=== PATIENT | male | born 1970 | race Two or more races ===

== ENCOUNTER 2024-09-24 18:29 | Inpatient (IN) | payer MEDICAID, OTHER ==
[~2024-09-24] VITALS: Ht 157.5 cm; Wt 61.7 kg
[2024-09-24] MEDS: OXYCODONE W/ ACETAMINOPHEN 5/325MG TABLET PO ONE (20:25)
[2024-09-24] MEDS: IBUPROFEN 800 MG TAB PO ONE (20:25)
--- NOTE | 2024-09-24 21:49 | DVH ---
INDICATION: INJURY/SWELLING/PAIN COMPARISON: None TECHNIQUE: CT of the right was performed without contrast. Volume transverse images were obtained a nd reconstructed in multiple planes using bone and soft tissue algorithms. CONTRAST: None Radiation Dose Information: CT Dose: CTDI volume is 7.75 mGy. Dose-length product is 242.92 mGy*cm FINDINGS: The alignment is normal. Arthritic changes of the patellofemoral joint and and there are cystic changes in the proximal tibia. There appears to be fragmentation superior pole of the patella. There is swelling over the anterior portion of the patella. Can not exclude acute fracture. IMPRESSION: Soft tissue swelling over the patella. Fragmentation of the patella age indeterminate. Arthritic changes of the left knee.
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
[2024-09-24 22:38] LABS: Basophils # (auto) 0.1 10 ^3/uL (0-0.2); Basophils % (auto) 0.6 % (0.0-2.0); Eosinophils # (auto) 0 10 ^3/uL (0-0.8); Eosinophils % (auto) 0.2 % (0.0-7.0); Hematocrit 39.5 % (41.0-53.0); Hemoglobin 13.3 g/dL (13.5-17.5); Lymphocytes # (auto) 1.7 10 ^3/uL (0.4-5.4); Mean Corpuscular Hemoglobin 29.9 pg (28.0-32.0); Mean Corpuscular Hgb Conc. 33.7 g/dL (32.0-36.0); Mean Corpuscular Volume 88.6 fL (80.0-100.0); Monocytes # (auto) 1.5 10 ^3/uL (0-1.3); Monocytes % (auto) 12.8 % (0.0-12.0); Neutrophils # (auto) 8.2 10 ^3/uL (1.6-8.6); Neutrophils % (auto) 71.4 % (37.0-80.0); Platelet Count (auto) 284 10^3/uL (140-450); Red Blood Cells 4.46 10^6/uL (4.5-5.90); Red Cell Distribution Width 13.3 % (11.8-14.3); White Blood Cell 11.4 10^3/uL (4.4-10.8)
--- NOTE | 2024-09-24 22:41 | DVH ---
HISTORY: TRAUMA/PAIN/SWELLING TECHNIQUE: Nonenhanced axial images through the facial bones with coronal and sagittal MPR. Radiation Dose Information: CT Dose: CTDI volume is 66.43 mGy. Dose-length product is 1387.34 mGy*cm FINDINGS: Mandible: No fracture Maxilla: No fracture Pterygoid plates: No fracture Zygomatic processes: No fracture. Zygomatic arches: No fracture Orbits: Intact Sinuses: Normal Facial swelling: No significant swelling visualized IMPRESSION: 1. No acute facial fractures. Radiation optimization: All CT scans at this facility use at least one of these dose optimization maryam hniques: automated exposure control mA and/or kV adjustment per patient size (includes targeted exam s where dose is matched to clinical indication) or iterative reconstruction.
[2024-09-24 22:55] LABS: Alanine Aminotransferase 16 U/L (7-40); Alkaline Phosphatase 91 U/L (46-116); Anion Gap 7 (5-15); Aspartate Aminotransferase 23 U/L (13-40); BUN/Creatinine Ratio 9.9 (10.0-20.0); Blood Urea Nitrogen 9 mg/dL (9-23); Calcium 9.9 mg/dL (8.7-10.4); Carbon Dioxide 27 mmol/L (20-31); Chloride 103 mmol/L (98-107); Sodium 137 mmol/L (136-145); Total Protein 6.9 g/dL (5.7-8.2)
[2024-09-24 22:57] LABS: Bilirubin, Total 1.3 mg/dL (0.2-1.0); Glucose 112 mg/dL (74-106)
[2024-09-24] MEDS: SODIUM CHLORIDE 0.9% 1,000 ML IV ONE (23:04)
[2024-09-25] VITALS (8 sets, daily range): BP systolic 90–103; BP diastolic 52–58; PULSE 64–95; RESP 16–18; TEMP 98.1–98.6; O2SAT 92–97
[2024-09-25] MEDS ORDERED: MORPHINE SULFATE INJ 2 MG/ml SYRG IV PRN (00:30)
[2024-09-25] MEDS ORDERED: ACETAMINOPHEN 325 MG TAB PO PRN (00:30)
[2024-09-25] MEDS ORDERED: ONDANSETRON HCL 4 MG/2 ML VIAL IV PRN (00:30)
[2024-09-25] MEDS ORDERED: NITROGLYCERIN 0.4 MG SL TAB SL PRN (00:30)
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
[2024-09-25] MEDS: SODIUM CHLORIDE 0.9% 1,000 ML IV SCH (02:33)
[2024-09-25] MEDS: cefTRIAXone 1GM/50ML D5W 50 ML IV ONE (02:33)
[2024-09-25 05:56] LABS: Basophils # (auto) 0.1 10 ^3/uL (0-0.2); Basophils % (auto) 0.6 % (0.0-2.0); Eosinophils # (auto) 0.2 10 ^3/uL (0-0.8); Eosinophils % (auto) 2.1 % (0.0-7.0); Hematocrit 35.9 % (41.0-53.0); Hemoglobin 12.2 g/dL (13.5-17.5); Lymphocytes # (auto) 2.1 10 ^3/uL (0.4-5.4); Lymphocytes % (auto) 22.6 % (10.0-50.0); Mean Corpuscular Hgb Conc. 33.9 g/dL (32.0-36.0); Mean Corpuscular Volume 88.4 fL (80.0-100.0); Monocytes # (auto) 1.6 10 ^3/uL (0-1.3); Monocytes % (auto) 17.5 % (0.0-12.0); Neutrophils # (auto) 5.4 10 ^3/uL (1.6-8.6); Neutrophils % (auto) 57.2 % (37.0-80.0); Platelet Count (auto) 262 10^3/uL (140-450); Red Blood Cells 4.05 10^6/uL (4.5-5.90); Red Cell Distribution Width 13.4 % (11.8-14.3); White Blood Cell 9.3 10^3/uL (4.4-10.8)
[2024-09-25 06:36] LABS: Alanine Aminotransferase 12 U/L (7-40); Albumin 3.5 g/dL (3.2-4.8); Alkaline Phosphatase 76 U/L (46-116); Anion Gap 8 (5-15); Aspartate Aminotransferase 16 U/L (13-40); BUN/Creatinine Ratio 13.1 (10.0-20.0); Blood Urea Nitrogen 13 mg/dL (9-23); Calcium 9.1 mg/dL (8.7-10.4); Carbon Dioxide 27 mmol/L (20-31); Chloride 105 mmol/L (98-107); Glucose 94 mg/dL (74-106); Sodium 140 mmol/L (136-145)
[2024-09-25 06:37] LABS: Bilirubin, Total 0.9 mg/dL (0.2-1.0); Potassium 3.5 mmol/L (3.5-5.1); Total Protein 5.8 g/dL (5.7-8.2)
[2024-09-25] MEDS: ENOXAPARIN SOD 40 MG/0.4 ML SYRINGE SC SCH (09:31)
--- NOTE | 2024-09-25 14:45 | DVHPN2 ---
Subjective 54-year-old male fell and injured his left knee Changes from previous H/P or p: Changes Eyes: No Pain, No Vision change, No Conjunctivae inflammation, No Eyelid inflammation, No Other, No Redness ENT: No Ear pain, No Ear discharge, No Nose pain, No Nose discharge, No Nose congestion, No Mouth pain, No Mouth swelling, No Throat pain, No Throat swelling, No Other Cardiovascular: No Chest Pain, No Palpitations, No Orthopnea, No Paroxysmal Noc. Dyspnea, No Edema, No Lt Headedness, No Other Respiratory: No Cough, No Dry, No Shortness of breath, No SOB with excertion, No Wheezing, No Hemoptysis, No Pleuritic Pain, No Sputum, No Other Gastrointestinal: No Nausea, No Vomiting, No Abdominal Pain, No Diarrhea, No Constipation, No Melena, No Hematochezia, No Other Genitourinary: No Dysuria, No Frequency, No Incontinence, No Hematuria, No Retention, No Other Musculoskeletal: other (Left knee pain, joint swelling.); No neck pain, No shoulder pain, No arm pain, No back pain, No hand pain, No leg pain, No foot pain Skin: No Rash, No Lesions, No Jaundice, No Bruising, No Other Objective Vitals Vital Signs Date Time Temp Pulse Resp B/P (MAP) Pulse Ox O2 Delivery O2 Flow Rate FiO2 09/25/24 12:46 64 17 103/52 (69) 95 09/25/24 08:32 98.6 98.6 09/24/24 20:47 Room Air General Appearance: Alert, Oriented X3, Cooperative Lungs: Clear to auscultation, Normal air movement Cardiovascular: Regular rate, Normal S1, Normal S2 Abdomen: Normal bowel sounds, Soft, No tenderness Extremities: Other (2+ edema in the left leg, no edema in the right leg) Medications Current Medications Medications Dose Ordered Sig/León Route Start Time Stop Time Status Last Admin Dose Admin Ceftriaxone Sodium 50 ml @ 100 mls/hr DAILY@0100 IV 09/26/24 01:00 Sodium Chloride 1,000 ml @ 60 mls/hr [id number] IV 09/25/24 00:30 09/25/24 02:33 60 MLS/HR Acetaminophen/ Hydrocodone Bitart 1 tab Q4HP PRN PO 09/25/24 00:30 Ondansetron HCl 4 mg Q4HP PRN IV 09/25/24 00:30 Docusate Sodium 100 mg BIDPRN PRN PO 09/25/24 00:30 Enoxaparin Sodium 40 mg DAILY SC 09/25/24 10:00 Acetaminophen 650 mg Q6HP PRN PO 09/25/24 00:30 Morphine Sulfate 2 mg Q4HPRN PRN IV 09/25/24 00:30 Nitroglycerin 0.4 mg Q5MINP PRN SL 09/25/24 00:30 Morphine Sulfate 2 mg Q30M PRN IV 09/25/24 00:30 Laboratory Results Laboratory Tests 09/25/24 04:50 Chemistry Test 09/24/24 22:28 09/25/24 04:50 Albumin 4.0 g/dL (3.2-4.8) 3.5 g/dL (3.2-4.8) Calcium Level 9.9 mg/dL (8.7-10.4) 9.1 mg/dL (8.7-10.4) Total Protein 6.9 g/dL (5.7-8.2) 5.8 g/dL (5.7-8.2) LFT Test 09/24/24 22:28 09/25/24 04:50 Alanine Aminotransferase (ALT) 16 U/L (7-40) 12 U/L (7-40) Alkaline Phosphatase 91 U/L (46-116) 76 U/L (46-116) Aspartate Amino Transferase (AST) 23 U/L (13-40) 16 U/L (13-40) Total Bilirubin 1.3 mg/dL (0.2-1.0) H 0.9 mg/dL (0.2-1.0) Assessment/Plan Assessment/Plan 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
--- NOTE | 2024-09-25 16:39 | DVH ---
Left lower extremity venous duplex Clinical History: edema Comparison: None Technique: Duplex Doppler evaluation of the deep venous system of the left lower extremity from the common femor al vein to the popliteal vein including color Doppler and spectral/pulsed waveform analysis was perfo rmed. Findings: The common femoral vein demonstrates appropriate compressibility and waveform variability. There is compressibility/patency of the great saphenous vein at the proximal thigh. The femoral vein demonstrates appropriate compressibility and waveform variability. The deep femoral vein demonstrates appropriate compressibility and waveform variability. The popliteal vein demonstrates appropriate compressibility and waveform variability. There is normal compressibility at the tibioperoneal trunk. Impression: No left femoropopliteal venous thrombosis.
[2024-09-25] MEDS: HYDROcodone-ACET 5/325MG TAB PO PRN (18:36)
[2024-09-26] VITALS (8 sets, daily range): BP systolic 94–115; BP diastolic 50–76; PULSE 61–75; RESP 18–21; TEMP 97.5–98.2; O2SAT 94–98
[2024-09-26] MEDS: cefTRIAXone 1GM/50ML D5W 50 ML IV SCH (01:53)
[2024-09-26 06:45] LABS: Basophils # (auto) 0.1 10 ^3/uL (0-0.2); Basophils % (auto) 0.7 % (0.0-2.0); Eosinophils # (auto) 0.2 10 ^3/uL (0-0.8); Eosinophils % (auto) 2.5 % (0.0-7.0); Hematocrit 36.8 % (41.0-53.0); Hemoglobin 12.3 g/dL (13.5-17.5); Lymphocytes # (auto) 1.8 10 ^3/uL (0.4-5.4); Lymphocytes % (auto) 21.1 % (10.0-50.0); Mean Corpuscular Hemoglobin 29.8 pg (28.0-32.0); Mean Corpuscular Hgb Conc. 33.4 g/dL (32.0-36.0); Mean Corpuscular Volume 89.4 fL (80.0-100.0); Neutrophils # (auto) 5.6 10 ^3/uL (1.6-8.6); Neutrophils % (auto) 64.7 % (37.0-80.0); Nucleated Red Blood Cells % 0.1 %; Platelet Count (auto) 295 10^3/uL (140-450); Red Blood Cells 4.11 10^6/uL (4.5-5.90); Red Cell Distribution Width 13.3 % (11.8-14.3); White Blood Cell 8.7 10^3/uL (4.4-10.8)
[2024-09-26 06:59] LABS: Alanine Aminotransferase 14 U/L (7-40); Albumin 3.6 g/dL (3.2-4.8); Alkaline Phosphatase 73 U/L (46-116); Anion Gap 5 (5-15); Aspartate Aminotransferase 17 U/L (13-40); BUN/Creatinine Ratio 14.6 (10.0-20.0); Blood Urea Nitrogen 12 mg/dL (9-23); Calcium 9.5 mg/dL (8.7-10.4); Carbon Dioxide 28 mmol/L (20-31); Chloride 105 mmol/L (98-107); Glucose 91 mg/dL (74-106); Potassium 4.1 mmol/L (3.5-5.1); Sodium 138 mmol/L (136-145)
[2024-09-26 07:00] LABS: Bilirubin, Total 0.6 mg/dL (0.2-1.0); Total Protein 6.1 g/dL (5.7-8.2)
--- NOTE | 2024-09-26 13:11 | DVHPN2 ---
Subjective Swelling in his left leg is better No DVT Changes from previous H/P or p: Changes Eyes: No Pain, No Vision change, No Conjunctivae inflammation, No Eyelid inflammation, No Other, No Redness ENT: No Ear pain, No Ear discharge, No Nose pain, No Nose discharge, No Nose congestion, No Mouth pain, No Mouth swelling, No Throat pain, No Throat swelling, No Other Cardiovascular: No Chest Pain, No Palpitations, No Orthopnea, No Paroxysmal Noc. Dyspnea, No Edema, No Lt Headedness, No Other Respiratory: No Cough, No Dry, No Shortness of breath, No SOB with excertion, No Wheezing, No Hemoptysis, No Pleuritic Pain, No Sputum, No Other Gastrointestinal: No Nausea, No Vomiting, No Abdominal Pain, No Diarrhea, No Constipation, No Melena, No Hematochezia, No Other Genitourinary: No Dysuria, No Frequency, No Incontinence, No Hematuria, No Retention, No Other Musculoskeletal: other (Left knee pain, joint swelling.); No neck pain, No shoulder pain, No arm pain, No back pain, No hand pain, No leg pain, No foot pain Skin: No Rash, No Lesions, No Jaundice, No Bruising, No Other Objective Vitals Vital Signs Date Time Temp Pulse Resp B/P (MAP) Pulse Ox O2 Delivery O2 Flow Rate FiO2 09/26/24 09:00 97.9 61 18 97/50 (66) 96 97.9 09/26/24 08:10 Room Air* 0 21 Intake/Output Intake and Output 09/26/24 07:00 Intake Total 890 ml Output Total 700 ml Balance 190 ml Intake Oral 840 ml IV Total 50 ml Output Urine Total 700 ml General Appearance: Alert, Oriented X3, Cooperative Lungs: Clear to auscultation, Normal air movement Cardiovascular: Regular rate, Normal S1, Normal S2 Abdomen: Normal bowel sounds, Soft, No tenderness Extremities: Other (2+ edema in the left leg, no edema in the right leg) Medications Current Medications Medications Dose Ordered Sig/León Route Start Time Stop Time Status Last Admin Dose Admin Ceftriaxone Sodium 50 ml @ 100 mls/hr DAILY@0100 IV 09/26/24 01:00 09/26/24 01:53 100 MLS/HR Acetaminophen/ Hydrocodone Bitart 1 tab Q4HP PRN PO 09/25/24 00:30 09/26/24 12:18 1 TAB Ondansetron HCl 4 mg Q4HP PRN IV 09/25/24 00:30 Docusate Sodium 100 mg BIDPRN PRN PO 09/25/24 00:30 Enoxaparin Sodium 40 mg DAILY SC 09/25/24 10:00 Acetaminophen 650 mg Q6HP PRN PO 09/25/24 00:30 Morphine Sulfate 2 mg Q4HPRN PRN IV 09/25/24 00:30 Nitroglycerin 0.4 mg Q5MINP PRN SL 09/25/24 00:30 Morphine Sulfate 2 mg Q30M PRN IV 09/25/24 00:30 Laboratory Results Laboratory Tests 09/26/24 05:54 Chemistry Test 09/26/24 05:54 Albumin 3.6 g/dL (3.2-4.8) Calcium Level 9.5 mg/dL (8.7-10.4) Total Protein 6.1 g/dL (5.7-8.2) LFT Test 09/26/24 05:54 Alanine Aminotransferase (ALT) 14 U/L (7-40) Alkaline Phosphatase 73 U/L (46-116) Aspartate Amino Transferase (AST) 17 U/L (13-40) Total Bilirubin 0.6 mg/dL (0.2-1.0) Assessment/Plan Assessment/Plan 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 Left lower extremity edema, rule out DVT Homeless Facial injury with no fracture Plan 09/25/2024: Doppler of the left leg to rule out DVT Orthopedic consult Pain management Monitor closely Advance directives discussed for 15 minutes Full code 09/26/2024: Orthopedic consult is pending Pain management as needed May shower No DVT Plan discussed with: Patient My Orders Orders - SRIRAM AGUIRRE MD Procedure Category Date Status Time Lt Lower Dvt US 09/25/24 Resulted 14:41 Date of Service: Sep 26, 2024 Billing Provider: SRIRAM AGUIRRE MD Common Visit Codes: [id number] INP/OBS CARE(HIGH) SRIRAM AGUIRRE MD Sep 26, 2024 13:11
--- NOTE | 2024-09-26 15:23 | MEDREC ---
[facility] Intervention Section I [facility] Intervention: Review courses of therapy (PLEASE CONSIDER D/C ANTIBIOTIC IN ABSENCE OF BACTERIAL INFECTION) NOE MARTIN PHARMACIST Sep 26, 2024 15:23
[2024-09-27] VITALS (7 sets, daily range): BP systolic 94–114; BP diastolic 61–81; PULSE 58–72; RESP 16–19; TEMP 97.6–98.4; O2SAT 93–100
--- NOTE | 2024-09-27 12:05 | DVHPN2 ---
Subjective Swelling in his left leg is better No DVT Changes from previous H/P or p: Changes Eyes: No Pain, No Vision change, No Conjunctivae inflammation, No Eyelid inflammation, No Other, No Redness ENT: No Ear pain, No Ear discharge, No Nose pain, No Nose discharge, No Nose congestion, No Mouth pain, No Mouth swelling, No Throat pain, No Throat swelling, No Other Cardiovascular: No Chest Pain, No Palpitations, No Orthopnea, No Paroxysmal Noc. Dyspnea, No Edema, No Lt Headedness, No Other Respiratory: No Cough, No Dry, No Shortness of breath, No SOB with excertion, No Wheezing, No Hemoptysis, No Pleuritic Pain, No Sputum, No Other Gastrointestinal: No Nausea, No Vomiting, No Abdominal Pain, No Diarrhea, No Constipation, No Melena, No Hematochezia, No Other Genitourinary: No Dysuria, No Frequency, No Incontinence, No Hematuria, No Retention, No Other Musculoskeletal: other (Left knee pain, joint swelling.); No neck pain, No shoulder pain, No arm pain, No back pain, No hand pain, No leg pain, No foot pain Skin: No Rash, No Lesions, No Jaundice, No Bruising, No Other Objective Vitals Vital Signs Date Time Temp Pulse Resp B/P (MAP) Pulse Ox O2 Delivery O2 Flow Rate FiO2 09/27/24 09:00 97.8 60 16 111/72 (85) 97 97.8 09/27/24 08:00 Room Air* 0 21 Intake/Output Intake and Output 09/27/24 07:00 Intake Total 1530 ml Output Total 1850 ml Balance -320 ml Intake Oral 1480 ml IV Total 50 ml Output Urine Total 1850 ml General Appearance: Alert, Oriented X3, Cooperative Lungs: Clear to auscultation, Normal air movement Cardiovascular: Regular rate, Normal S1, Normal S2 Abdomen: Normal bowel sounds, Soft, No tenderness Extremities: Other (2+ edema in the left leg, no edema in the right leg) Medications Current Medications Medications Dose Ordered Sig/León Route Start Time Stop Time Status Last Admin Dose Admin Acetaminophen/ Hydrocodone Bitart 1 tab Q4HP PRN PO 09/25/24 00:30 09/26/24 20:25 1 TAB Ondansetron HCl 4 mg Q4HP PRN IV 09/25/24 00:30 Docusate Sodium 100 mg BIDPRN PRN PO 09/25/24 00:30 Enoxaparin Sodium 40 mg DAILY SC 09/25/24 10:00 Acetaminophen 650 mg Q6HP PRN PO 09/25/24 00:30 Morphine Sulfate 2 mg Q4HPRN PRN IV 09/25/24 00:30 Nitroglycerin 0.4 mg Q5MINP PRN SL 09/25/24 00:30 Morphine Sulfate 2 mg Q30M PRN IV 09/25/24 00:30 Laboratory Results Laboratory Tests 09/26/24 05:54 Assessment/Plan Assessment/Plan 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 Left lower extremity edema, rule out DVT Homeless Facial injury with no fracture Plan 09/25/2024: Doppler of the left leg to rule out DVT Orthopedic consult Pain management Monitor closely Advance directives discussed for 15 minutes Full code 09/26/2024: Orthopedic consult is pending Pain management as needed May shower No DVT 09/27/2024: Continue the current management pending orthopedic surgery evaluation Pain management as needed Shower Plan discussed with: Patient Date of Service: Sep 27, 2024 Billing Provider: SRIRAM AGUIRRE MD Common Visit Codes: [id number] INP/OBS CARE(MOD) SRIRAM AGUIRRE MD Sep 27, 2024 12:05
--- NOTE | 2024-09-27 13:01 | DVH ---
Procedure: MRI LEFT KNEE WO CONTRAST 09/27/2024 11:34 AM INDICATION: patella tendon tear COMPARISON: CT CT L KNEE WO CONTRAST on DOS: 09/24/24 TECHNIQUE: MRI of the left knee was performed utilizing multiple appropriate imaging planes and pulse sequences. FINDINGS: Medial meniscus: There is complete tear of the posterior root, deformity and signal alteration of the posterior horn. The body of the meniscus is markedly diminutive that could be related to prior meni scectomy or tear. Lateral meniscus: Complete tear of the posterior root. Anterior cruciate ligament: The ACL is absent likely chronically torn. Posterior cruciate ligament: Signal alteration suggestive of mucoid degeneration or partial tear. Medial collateral ligament: Unremarkable. Lateral stabilizers: Unremarkable. Extensor mechanism: Patellar tendon tear from inferior pole patella is seen with 2.6 cm tendon retrac tion and resultant patella Anitha. The quadriceps tendon is intact. Pes anserine Tendons: Unremarkable. Medial compartment: Full-thickness loss of articular cartilage is seen on both sides of the joint wit h underlying subchondral cyst formation associated marginal osteophytosis. Lateral compartment: Moderate thinning and irregularity of the articular cartilage on both sides join t. Moderate marginal osteophytosis noted. Subchondral edema and cyst formation noted. Patellofemoral compartment: Mild irregularity of the articular cartilage over lateral patellar facet noted. The lateral patellofemoral retinaculum is completely torn at midportion and posterior retracte d. The anterior part is markedly thickened and edematous. Patellar osteophytosis. Bones: 2 adjacent corticated osseous fragments noted at the superolateral aspect of patella each juan pablo uring 1 cm with underlying bone marrow edema. No bone marrow edema is seen in the adjacent patella. These may represent old avulsion fracture fragments versus multi partite patella. Joint Effusion: Large complex suprapatellar joint effusion likely hemorrhagic. Popliteal fossa: No Guillory's cyst. Other: Severe diffuse subcutaneous edema. Large amount of subcutaneous fluid anterior to patella sug gestive of closed degloving injury. IMPRESSION: 1. Complete tear and retraction of patellar tendon from patellar insertion with resultant patella Alt a. 2. No acute osseous abnormality. 3. Closed degloving injury in the anterior knee with a large amount of subcutaneous hemorrhagic fluid noted. 4. Diffuse subcutaneous edema overlying the knee. 5. Complete tear of the lateral patellar patellofemoral ligament at midportion . 6. Findings suggestive of multipartite patella versus old comminuted fracture of the superolateral pa tellar pole. Moderate bone marrow edema in the osseous fragments reflect instability. 7. Large complex suprapatellar joint effusion likely hemorrhagic. 8. Medial and lateral meniscal tears. 9. 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 10. Absent ACL reflecting a chronic tear. 11. Signal alteration of PCL likely reflect mucoid degeneration. Chronic partial tear can not be rul ed out.
--- NOTE | 2024-09-27 18:14 | DVH ---
CHEST RADIOGRAPH Indication: surgery Technique: Single frontal view of the chest was obtained COMPARISON: None FINDINGS: Lines and Tubes: None Lungs: Clear Pleura: No effusion. No pneumothorax. Cardiomediastinal contours: Unremarkable Bones: Unremarkable IMPRESSION: No acute disease.
[2024-09-28] VITALS (9 sets, daily range): BP systolic 95–148; BP diastolic 64–89; PULSE 58–91; RESP 15–20; TEMP 97.5–99.3; O2SAT 94–100
[2024-09-28 00:24] LABS: Urine Bacteria None Seen /hpf (None Seen)
[2024-09-28 00:29] LABS: Urine Blood Negative /uL (Negative); Urine Clarity Clear (Clear); Urine Color Light-Yellow (Yellow); Urine Protein, UAD Negative (Negative); Urine Urobilinogen Normal (Negative); Urine WBC <1 /hpf (0 - 3); Urine pH 6.5 (5.0-9.0)
[2024-09-28 07:03] LABS: Basophils # (auto) 0 10 ^3/uL (0-0.2); Basophils % (auto) 0.5 % (0.0-2.0); Eosinophils # (auto) 0.2 10 ^3/uL (0-0.8); Eosinophils % (auto) 2.8 % (0.0-7.0); Hematocrit 43.6 % (41.0-53.0); Hemoglobin 14.9 g/dL (13.5-17.5); Lymphocytes # (auto) 1.6 10 ^3/uL (0.4-5.4); Mean Corpuscular Hemoglobin 30.3 pg (28.0-32.0); Mean Corpuscular Hgb Conc. 34.2 g/dL (32.0-36.0); Mean Corpuscular Volume 88.6 fL (80.0-100.0); Monocytes # (auto) 0.8 10 ^3/uL (0-1.3); Monocytes % (auto) 9.2 % (0.0-12.0); Neutrophils # (auto) 6.1 10 ^3/uL (1.6-8.6); Neutrophils % (auto) 69.5 % (37.0-80.0); Platelet Count (auto) 364 10^3/uL (140-450); Red Blood Cells 4.93 10^6/uL (4.5-5.90); Red Cell Distribution Width 13.2 % (11.8-14.3); White Blood Cell 8.8 10^3/uL (4.4-10.8)
[2024-09-28 07:17] LABS: INR 1.05 (0.9-1.15); Partial Thromboplastin Time 27.6 SEC (24.5-34.5); Prothrombin Time 11.1 sec (9.3-11.8)
[2024-09-28 07:22] LABS: Alanine Aminotransferase 16 U/L (7-40); Albumin 4.1 g/dL (3.2-4.8); Alkaline Phosphatase 86 U/L (46-116); Anion Gap 6 (5-15); Aspartate Aminotransferase 20 U/L (13-40); BUN/Creatinine Ratio 19.5 (10.0-20.0); Blood Urea Nitrogen 17 mg/dL (9-23); Calcium 9.8 mg/dL (8.7-10.4); Carbon Dioxide 30 mmol/L (20-31); Chloride 100 mmol/L (98-107); Glucose 90 mg/dL (74-106); Potassium 4.6 mmol/L (3.5-5.1)
[2024-09-28 07:23] LABS: Bilirubin, Total 0.7 mg/dL (0.2-1.0)
[2024-09-28 07:25] LABS: Sodium 136 mmol/L (136-145)
[2024-09-28] MEDS: ceFAZolin 2 GM/D5W100ml 100 ML IV ONE (12:43)
--- NOTE | 2024-09-28 13:43 | DVHPN2 ---
Subjective Surgery for today Changes from previous H/P or p: Changes Eyes: No Pain, No Vision change, No Conjunctivae inflammation, No Eyelid inflammation, No Other, No Redness ENT: No Ear pain, No Ear discharge, No Nose pain, No Nose discharge, No Nose congestion, No Mouth pain, No Mouth swelling, No Throat pain, No Throat swelling, No Other Cardiovascular: No Chest Pain, No Palpitations, No Orthopnea, No Paroxysmal Noc. Dyspnea, No Edema, No Lt Headedness, No Other Respiratory: No Cough, No Dry, No Shortness of breath, No SOB with excertion, No Wheezing, No Hemoptysis, No Pleuritic Pain, No Sputum, No Other Gastrointestinal: No Nausea, No Vomiting, No Abdominal Pain, No Diarrhea, No Constipation, No Melena, No Hematochezia, No Other Genitourinary: No Dysuria, No Frequency, No Incontinence, No Hematuria, No Retention, No Other Musculoskeletal: other (Left knee pain, joint swelling.); No neck pain, No shoulder pain, No arm pain, No back pain, No hand pain, No leg pain, No foot pain Skin: No Rash, No Lesions, No Jaundice, No Bruising, No Other Objective Vitals Vital Signs Date Time Temp Pulse Resp B/P (MAP) Pulse Ox O2 Delivery O2 Flow Rate FiO2 09/28/24 13:00 98.1 67 16 105/65 (78) 96 98.1 09/27/24 20:00 Room Air* 0 21 Intake/Output Intake and Output 09/28/24 07:00 Intake Total 900 ml Output Total 2325 ml Balance -1425 ml Intake Oral 900 ml Output Urine Total 2325 ml General Appearance: Alert, Oriented X3, Cooperative Lungs: Clear to auscultation, Normal air movement Cardiovascular: Regular rate, Normal S1, Normal S2 Abdomen: Normal bowel sounds, Soft, No tenderness Extremities: Other (2+ edema in the left leg, no edema in the right leg) Medications Current Medications Medications Dose Ordered Sig/León Route Start Time Stop Time Status Last Admin Dose Admin Acetaminophen/ Hydrocodone Bitart 1 tab Q4HP PRN PO 09/25/24 00:30 09/27/24 12:44 1 TAB Ondansetron HCl 4 mg Q4HP PRN IV 09/25/24 00:30 Docusate Sodium 100 mg BIDPRN PRN PO 09/25/24 00:30 Enoxaparin Sodium 40 mg DAILY SC 09/25/24 10:00 Acetaminophen 650 mg Q6HP PRN PO 09/25/24 00:30 Morphine Sulfate 2 mg Q4HPRN PRN IV 09/25/24 00:30 Nitroglycerin 0.4 mg Q5MINP PRN SL 09/25/24 00:30 Morphine Sulfate 2 mg Q30M PRN IV 09/25/24 00:30 Laboratory Results Laboratory Tests 09/28/24 06:20 Chemistry Test 09/28/24 06:20 Albumin 4.1 g/dL (3.2-4.8) Calcium Level 9.8 mg/dL (8.7-10.4) Total Protein 7.0 g/dL (5.7-8.2) Coagulation Test 09/28/24 06:20 Prothrombin Time 11.1 sec (9.3-11.8) Prothrombin Time INR 1.05 (0.9-1.15) Activated Partial Thromboplast Time 27.6 SEC (24.5-34.5) LFT Test 09/28/24 06:20 Alanine Aminotransferase (ALT) 16 U/L (7-40) Alkaline Phosphatase 86 U/L (46-116) Aspartate Amino Transferase (AST) 20 U/L (13-40) Total Bilirubin 0.7 mg/dL (0.2-1.0) Urinalysis Test 09/28/24 00:16 Urine Color Light-yellow (Yellow) Urine Clarity Clear (Clear) Urine pH 6.5 (5.0-9.0) Urine Specific [place] 1.010 (1.001-1.035) Urine Protein Negative (Negative) Urine Ketones Negative (Negative) Urine Blood Negative /uL (Negative) Urine Nitrite Negative (Negative) Urine Bilirubin Negative (Negative) Urine Urobilinogen Normal mg/dL (Negative) Urine Leukocyte Esterase Negative /uL (Negative) Urine RBC 2 /hpf (0 - 3) Urine WBC <1 /hpf (0 - 3) Urine Squamous Epithelial Cells None seen /hpf (<5) Urine Bacteria None seen /hpf (None Seen) Urine Glucose Normal mg/dL (Normal) Assessment/Plan Assessment/Plan 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 Left lower extremity edema, rule out DVT Homeless Facial injury with no fracture Plan 09/25/2024: Doppler of the left leg to rule out DVT Orthopedic consult Pain management Monitor closely Advance directives discussed for 15 minutes Full code 09/26/2024: Orthopedic consult is pending Pain management as needed May shower No DVT 09/27/2024: Continue the current management pending orthopedic surgery evaluation Pain management as needed Shower 09/28/2024: Surgery for today The rest of the management will depend on the hospital course Plan discussed with: Patient Date of Service: Sep 28, 2024 Billing Provider: SRIRAM AGUIRRE MD Common Visit Codes: [id number] INP/OBS CARE(HIGH) SRIRAM AGUIRRE MD Sep 28, 2024 13:43
[2024-09-28] MEDS ORDERED: LIDOCAINE 1% INJ PF 5ML AMP ONE (14:03)
[2024-09-28] MEDS ORDERED: ROCURONIUM 10MG/ML 10ML VIAL IV ONE (14:03)
[2024-09-28] MEDS ORDERED: MEPERIDINE HCL (50 MG/ML) 1 ML VIAL ONE (14:03)
[2024-09-28] MEDS ORDERED: PROPOFOL 10 MG/ML 20 ML IV ONE (14:03)
[2024-09-28] MEDS ORDERED: fentaNYL CITRATE 100 MCG/2 ML VL ONE (14:03)
[2024-09-28] MEDS ORDERED: MIDAZOLAM HCL 2MG/2ML 2ml VIAL (1mg/ml) ONE (14:03)
[2024-09-28] MEDS: BUPIVACAINE HCL 50 ML ONE (15:08)
[2024-09-28] MEDS ORDERED: KETOROLAC TROMETH 30 MG/ML 1ML VIAL ONE (15:29)
[2024-09-28] MEDS ORDERED: DexAMETHasone SOD PHOS 10MG/1ML VIAL INJ ONE (15:29)
[2024-09-28] MEDS ORDERED: KETAMINE 50mg/ML 10ml Vial 10 ML ONE (15:29)
[2024-09-28] MEDS: ROPIVACAINE 0.5% (5MG/ML) 20ML AMPULE IJ ONE (15:50)
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
[2024-09-28] MEDS ORDERED: hydrALAZINE HCL 20 MG/ML VL IV PRN (16:45)
[2024-09-28] MEDS ORDERED: MEPERIDINE HCL (25 MG/ML) 1ML VIAL IV PRN (16:45)
[2024-09-28] MEDS ORDERED: ACETAMINOPHEN IV 1000 MG/100ML (10MG/ML) IV PRN (16:45)
[2024-09-28] MEDS: HYDROmorphone HCL 2 MG/ML VL/or syr IV PRN (17:28)
[2024-09-28] MEDS: ceFAZolin 1GM/50ML 50 ML IV SCH (18:30)
--- NOTE | 2024-09-28 18:31 | DVH ---
C-ARM FLUOROSCOPY: PROCEDURE: Left patella tendon repair FLUOROSCOPY TIME: 12.3 seconds DAP: 0.24 mgy FINDINGS: Spot intraoperative C arm radiographs demonstrating left patella tendon repair. IMPRESSION: Please refer to surgical report for detailed findings.
[2024-09-28] MEDS: LACTATED RINGER'S 1,000 ML IV SCH (19:40)
[2024-09-28] MEDS: DOCUSATE SOD 100 MG CAP PO PRN (22:46)
[2024-09-29] VITALS (7 sets, daily range): BP systolic 123–150; BP diastolic 73–85; PULSE 74–85; RESP 16–20; TEMP 98–99.1; O2SAT 94–100
[2024-09-29] MEDS: MORPHINE SULFATE INJ 2 MG/ml SYRG IV PRN (06:30)
[2024-09-29] MEDS: ONDANSETRON HCL 4 MG/2 ML VIAL IV ONE (07:28)
--- NOTE | 2024-09-29 09:11 | DVHINCON2 ---
Date of service: Sep 28, 2024 Allergies: Coded Allergies: NO KNOWN ALLERGIES (Unverified , 09/24/24) Current Medications Current Medications Medications (Trade) Dose Ordered Sig/León Route PRN Reason Start Time Stop Time Status Last Admin Lactated Ringer's 1,000 ml @ 100 mls/hr Q10H IV 09/28/24 16:30 09/28/24 19:40 Cefazolin Sodium 50 ml @ 50 mls/hr Q6H IV 09/28/24 16:30 09/29/24 05:29 DC 09/29/24 05:25 Acetaminophen (Ofirmev) 1,000 mg [id number] PRN IV PAIN SCALE 1-3 OR TEMP>100.4 09/28/24 16:45 09/28/24 16:49 DC Hydralazine HCl (Apresoline Injection) 5 mg Q10M PRN IV SBP>160 09/28/24 16:45 09/28/24 17:36 DC Hydromorphone HCl (Dilaudid Injection) 0.5 mg Q10M PRN IV SEVERE PAIN (7-10 PAIN SCALE) 09/28/24 16:45 09/28/24 17:26 DC Meperidine HCl (Demerol Injection) 25 mg Q10M PRN IV MODERATE PAIN (4-6 PAIN SCALE) 09/28/24 16:45 09/28/24 17:16 DC Vital Signs Vital Signs Date Time Temp Pulse Resp B/P (MAP) Pulse Ox O2 Delivery O2 Flow Rate FiO2 09/29/24 07:00 81 18 133/82 09/29/24 05:00 98.0 95 98.0 09/28/24 19:49 Room Air* 0 21 Physical Exam AAA x3 Significant swelling of the left knee noted. Patellar tendon defect palpated. NVI Labs/Diagnostic Data Labs Test 09/28/24 06:20 09/28/24 00:16 Range/Units White Blood Count 8.8 4.4-10.8 10^3/uL Red Blood Count 4.93 4.5-5.90 10^6/uL Hemoglobin 14.9 # 13.5-17.5 g/dL Hematocrit 43.6 # 41.0-53.0 % Mean Corpuscular Volume 88.6 80.0-100.0 fL Mean Corpuscular Hemoglobin 30.3 28.0-32.0 pg Mean Corpuscular Hemoglobin Concent 34.2 32.0-36.0 g/dL Red Cell Distribution Width 13.2 11.8-14.3 % Platelet Count 364 140-450 10^3/uL Mean Platelet Volume 8.6 6.9-10.8 fL Neutrophils (%) (Auto) 69.5 37.0-80.0 % Lymphocytes (%) (Auto) 18.0 10.0-50.0 % Monocytes (%) (Auto) 9.2 0.0-12.0 % Eosinophils (%) (Auto) 2.8 0.0-7.0 % Basophils (%) (Auto) 0.5 0.0-2.0 % Neutrophils # (Auto) 6.1 1.6-8.6 10 ^3/uL Lymphocytes # (Auto) 1.6 0.4-5.4 10 ^3/uL Monocytes # (Auto) 0.8 0-1.3 10 ^3/uL Eosinophils # (Auto) 0.2 0-0.8 10 ^3/uL Basophils # (Auto) 0 0-0.2 10 ^3/uL Nucleated Red Blood Cells 0.0 % Prothrombin Time 11.1 9.3-11.8 sec Prothrombin Time INR 1.05 0.9-1.15 Activated Partial Thromboplast Time 27.6 24.5-34.5 SEC Sodium Level 136 136-145 mmol/L Potassium Level 4.6 3.5-5.1 mmol/L Chloride Level 100 98-107 mmol/L Carbon Dioxide Level 30 20-31 mmol/L Anion Gap 6 5-15 Blood Urea Nitrogen 17 9-23 mg/dL Creatinine 0.87 0.700-1.30 mg/dL Glomerular Filtration Rate Calc 103 >90 mL/min BUN/Creatinine Ratio 19.5 10.0-20.0 Serum Glucose 90 74-106 mg/dL Calcium Level 9.8 8.7-10.4 mg/dL Total Bilirubin 0.7 0.2-1.0 mg/dL Aspartate Amino Transferase (AST) 20 13-40 U/L Alanine Aminotransferase (ALT) 16 7-40 U/L Alkaline Phosphatase 86 46-116 U/L Total Protein 7.0 5.7-8.2 g/dL Albumin 4.1 3.2-4.8 g/dL Urine Color Light-yellow Yellow Urine Clarity Clear Clear Urine pH 6.5 5.0-9.0 Urine Specific [place] 1.010 1.001-1.035 Urine Protein Negative Negative Urine Ketones Negative Negative Urine Blood Negative Negative /uL Urine Nitrite Negative Negative Urine Bilirubin Negative Negative Urine Urobilinogen Normal Negative mg/dL Urine Leukocyte Esterase Negative Negative /uL Urine RBC 2 0 - 3 /hpf Urine WBC <1 0 - 3 /hpf Urine Squamous Epithelial Cells None seen <5 /hpf Urine Bacteria None seen None Seen /hpf Urine Glucose Normal Normal mg/dL Plan/Recommendation 54Y male,with patellar tendon rupture. Complete tear noted on MRI Surgery recommended for primary repair. Pros and cons discussed. Benefits, risks and treatment alternatives discussed Importance of compliance with weight bearing restrictions discussed. Need for staying in the brace/splint was also discussed. Importance of good hygiene were also discussed consideration homeless and has multiple skin ulcerations Surgical complications including neurovascular injury, infection, arthrofibrosis, loss of limb or life were discussed. He decided to proceed with the surgical option. Plan discussed with: Patient JUAN A DIAZ MD Sep 29, 2024 09:11
--- NOTE | 2024-09-29 11:34 | DVHPN2 ---
Subjective Postop 1 day Complains of severe pain and says the morphine is not working Changes from previous H/P or p: Changes Eyes: No Pain, No Vision change, No Conjunctivae inflammation, No Eyelid inflammation, No Other, No Redness ENT: No Ear pain, No Ear discharge, No Nose pain, No Nose discharge, No Nose congestion, No Mouth pain, No Mouth swelling, No Throat pain, No Throat swelling, No Other Cardiovascular: No Chest Pain, No Palpitations, No Orthopnea, No Paroxysmal Noc. Dyspnea, No Edema, No Lt Headedness, No Other Respiratory: No Cough, No Dry, No Shortness of breath, No SOB with excertion, No Wheezing, No Hemoptysis, No Pleuritic Pain, No Sputum, No Other Gastrointestinal: No Nausea, No Vomiting, No Abdominal Pain, No Diarrhea, No Constipation, No Melena, No Hematochezia, No Other Genitourinary: No Dysuria, No Frequency, No Incontinence, No Hematuria, No Retention, No Other Musculoskeletal: other (Left knee pain, joint swelling.); No neck pain, No shoulder pain, No arm pain, No back pain, No hand pain, No leg pain, No foot pain Skin: No Rash, No Lesions, No Jaundice, No Bruising, No Other Objective Vitals Vital Signs Date Time Temp Pulse Resp B/P (MAP) Pulse Ox O2 Delivery O2 Flow Rate FiO2 09/29/24 09:00 98.1 77 20 136/81 (99) 99 98.1 09/28/24 19:49 Room Air* 0 21 Intake/Output Intake and Output 09/29/24 07:00 Intake Total 950 ml Output Total 2050 ml Balance -1100 ml Intake Oral 800 ml IV Total 150 ml Output Urine Total 2050 ml General Appearance: Alert, Oriented X3, Cooperative Lungs: Clear to auscultation, Normal air movement Cardiovascular: Regular rate, Normal S1, Normal S2 Abdomen: Normal bowel sounds, Soft, No tenderness Extremities: Other (2+ edema in the left leg, no edema in the right leg) Medications Current Medications Medications Dose Ordered Sig/León Route Start Time Stop Time Status Last Admin Dose Admin Acetaminophen/ Hydrocodone Bitart 1 tab Q4HP PRN PO 09/25/24 00:30 09/29/24 09:32 1 TAB Ondansetron HCl 4 mg Q4HP PRN IV 09/25/24 00:30 Docusate Sodium 100 mg BIDPRN PRN PO 09/25/24 00:30 09/28/24 22:46 100 MG Enoxaparin Sodium 40 mg DAILY SC 09/25/24 10:00 Acetaminophen 650 mg Q6HP PRN PO 09/25/24 00:30 Nitroglycerin 0.4 mg Q5MINP PRN SL 09/25/24 00:30 Lactated Ringer's 1,000 ml @ 100 mls/hr Q10H IV 09/28/24 16:30 09/28/24 19:40 100 MLS/HR Hydromorphone HCl 0.5 mg Q4HPRN PRN IV 09/29/24 10:00 Laboratory Results Laboratory Tests 09/28/24 06:20 Urinalysis Test 09/28/24 00:16 Urine Color Light-yellow (Yellow) Urine Clarity Clear (Clear) Urine pH 6.5 (5.0-9.0) Urine Specific [place] 1.010 (1.001-1.035) Urine Protein Negative (Negative) Urine Ketones Negative (Negative) Urine Blood Negative /uL (Negative) Urine Nitrite Negative (Negative) Urine Bilirubin Negative (Negative) Urine Urobilinogen Normal mg/dL (Negative) Urine Leukocyte Esterase Negative /uL (Negative) Urine RBC 2 /hpf (0 - 3) Urine WBC <1 /hpf (0 - 3) Urine Squamous Epithelial Cells None seen /hpf (<5) Urine Bacteria None seen /hpf (None Seen) Urine Glucose Normal mg/dL (Normal) Assessment/Plan Assessment/Plan 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 Left lower extremity edema, rule out DVT Homeless Facial injury with no fracture Plan 09/25/2024: Doppler of the left leg to rule out DVT Orthopedic consult Pain management Monitor closely Advance directives discussed for 15 minutes Full code 09/26/2024: Orthopedic consult is pending Pain management as needed May shower No DVT 09/27/2024: Continue the current management pending orthopedic surgery evaluation Pain management as needed Shower 09/28/2024: Surgery for today The rest of the management will depend on the hospital course 09/29/2024: Change morphine to Dilaudid Physical therapy evaluation Lovenox prophylaxis Monitor closely Plan discussed with: Patient My Orders Orders - SRIRAM AGUIRRE MD Procedure Category Date Status Time Basic Metabolic Panel LAB 09/29/24 Logged 04:00 Complete Blood Count LAB 09/29/24 Logged 04:00 Magnesium LAB 09/29/24 Logged 04:00 Cardiac DIET 09/29/24 Transmitted Diet-2gna,Lofat,Lochol Breakfast Hydromorphone PHA 09/29/24 In Process Injection (Dilaudid 10:00 Date of Service: Sep 29, 2024 Billing Provider: SRIRAM AGUIRRE MD Common Visit Codes: [id number] INP/OBS CARE(HIGH) SRIRAM AGUIRRE MD Sep 29, 2024 11:34
[2024-09-29] MEDS: HYDROmorphone HCL 2 MG/ML VL/or syr IV PRN (12:26)
[2024-09-29 20:38] LABS: Basophils # (auto) 0.1 10 ^3/uL (0-0.2); Basophils % (auto) 0.8 % (0.0-2.0); Eosinophils # (auto) 0.1 10 ^3/uL (0-0.8); Eosinophils % (auto) 0.8 % (0.0-7.0); Hematocrit 41.5 % (41.0-53.0); Hemoglobin 13.9 g/dL (13.5-17.5); Lymphocytes # (auto) 2.1 10 ^3/uL (0.4-5.4); Lymphocytes % (auto) 15.5 % (10.0-50.0); Mean Corpuscular Hemoglobin 29.4 pg (28.0-32.0); Mean Corpuscular Hgb Conc. 33.5 g/dL (32.0-36.0); Mean Corpuscular Volume 87.8 fL (80.0-100.0); Monocytes # (auto) 1.4 10 ^3/uL (0-1.3); Monocytes % (auto) 10.2 % (0.0-12.0); Neutrophils % (auto) 72.7 % (37.0-80.0); Platelet Count (auto) 391 10^3/uL (140-450); Red Blood Cells 4.72 10^6/uL (4.5-5.90); Red Cell Distribution Width 13.1 % (11.8-14.3); White Blood Cell 13.8 10^3/uL (4.4-10.8)
[2024-09-29 20:43] LABS: Potassium 4.2 mmol/L (3.5-5.1)
[2024-09-29 20:44] LABS: Anion Gap 5 (5-15); Calcium 10.1 mg/dL (8.7-10.4); Carbon Dioxide 31 mmol/L (20-31)
[2024-09-29 20:49] LABS: BUN/Creatinine Ratio 23.4 (10.0-20.0); Blood Urea Nitrogen 18 mg/dL (9-23)
[2024-09-29 20:50] LABS: Magnesium 1.9 mg/dL (1.6-2.6)
[2024-09-29 20:51] LABS: Chloride 98 mmol/L (98-107); Glucose 125 mg/dL (74-106); Sodium 134 mmol/L (136-145)
[2024-09-30] VITALS (7 sets, daily range): BP systolic 108–128; BP diastolic 74–88; PULSE 71–84; RESP 16–18; TEMP 97.9–98.6; O2SAT 94–100
--- NOTE | 2024-09-30 11:24 | DVHPN2 ---
Subjective Postop 2 day Vital signs are stable Complains of pain Changes from previous H/P or p: Changes Eyes: No Pain, No Vision change, No Conjunctivae inflammation, No Eyelid inflammation, No Other, No Redness ENT: No Ear pain, No Ear discharge, No Nose pain, No Nose discharge, No Nose congestion, No Mouth pain, No Mouth swelling, No Throat pain, No Throat swelling, No Other Cardiovascular: No Chest Pain, No Palpitations, No Orthopnea, No Paroxysmal Noc. Dyspnea, No Edema, No Lt Headedness, No Other Respiratory: No Cough, No Dry, No Shortness of breath, No SOB with excertion, No Wheezing, No Hemoptysis, No Pleuritic Pain, No Sputum, No Other Gastrointestinal: No Nausea, No Vomiting, No Abdominal Pain, No Diarrhea, No Constipation, No Melena, No Hematochezia, No Other Genitourinary: No Dysuria, No Frequency, No Incontinence, No Hematuria, No Retention, No Other Musculoskeletal: other (Left knee pain, joint swelling.); No neck pain, No shoulder pain, No arm pain, No back pain, No hand pain, No leg pain, No foot pain Skin: No Rash, No Lesions, No Jaundice, No Bruising, No Other Objective Vitals Vital Signs Date Time Temp Pulse Resp B/P (MAP) Pulse Ox O2 Delivery O2 Flow Rate FiO2 09/30/24 09:00 98.0 71 16 126/84 (98) 100 98.0 09/30/24 08:00 Room Air* 0 21 Intake/Output Intake and Output 09/30/24 07:00 Intake Total 500 ml Output Total 2175 ml Balance -1675 ml Intake Oral 500 ml Output Urine Total 2175 ml General Appearance: Alert, Oriented X3, Cooperative Lungs: Clear to auscultation, Normal air movement Cardiovascular: Regular rate, Normal S1, Normal S2 Abdomen: Normal bowel sounds, Soft, No tenderness Extremities: Other (2+ edema in the left leg, no edema in the right leg) Medications Current Medications Medications Dose Ordered Sig/León Route Start Time Stop Time Status Last Admin Dose Admin Acetaminophen/ Hydrocodone Bitart 1 tab Q4HP PRN PO 09/25/24 00:30 09/29/24 09:32 1 TAB Ondansetron HCl 4 mg Q4HP PRN IV 09/25/24 00:30 Docusate Sodium 100 mg BIDPRN PRN PO 09/25/24 00:30 09/28/24 22:46 100 MG Enoxaparin Sodium 40 mg DAILY SC 09/25/24 10:00 Acetaminophen 650 mg Q6HP PRN PO 09/25/24 00:30 Nitroglycerin 0.4 mg Q5MINP PRN SL 09/25/24 00:30 Lactated Ringer's 1,000 ml @ 100 mls/hr Q10H IV 09/28/24 16:30 09/30/24 08:38 100 MLS/HR Hydromorphone HCl 0.5 mg Q4HPRN PRN IV 09/29/24 10:00 09/30/24 08:38 0.5 MG Laboratory Results Laboratory Tests 09/29/24 20:00 Chemistry Test 09/29/24 20:00 Calcium Level 10.1 mg/dL (8.7-10.4) Magnesium Level 1.9 mg/dL (1.6-2.6) Urinalysis Test 09/28/24 00:16 Urine Color Light-yellow (Yellow) Urine Clarity Clear (Clear) Urine pH 6.5 (5.0-9.0) Urine Specific [place] 1.010 (1.001-1.035) Urine Protein Negative (Negative) Urine Ketones Negative (Negative) Urine Blood Negative /uL (Negative) Urine Nitrite Negative (Negative) Urine Bilirubin Negative (Negative) Urine Urobilinogen Normal mg/dL (Negative) Urine Leukocyte Esterase Negative /uL (Negative) Urine RBC 2 /hpf (0 - 3) Urine WBC <1 /hpf (0 - 3) Urine Squamous Epithelial Cells None seen /hpf (<5) Urine Bacteria None seen /hpf (None Seen) Urine Glucose Normal mg/dL (Normal) Assessment/Plan Assessment/Plan 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 Left lower extremity edema, rule out DVT Homeless Facial injury with no fracture Plan 09/25/2024: Doppler of the left leg to rule out DVT Orthopedic consult Pain management Monitor closely Advance directives discussed for 15 minutes Full code 09/26/2024: Orthopedic consult is pending Pain management as needed May shower No DVT 09/27/2024: Continue the current management pending orthopedic surgery evaluation Pain management as needed Shower 09/28/2024: Surgery for today The rest of the management will depend on the hospital course 09/29/2024: Change morphine to Dilaudid Physical therapy evaluation Lovenox prophylaxis Monitor closely 09/30/2024: Continue physical therapy The patient will need to go to SNF for rehab Lovenox Pain management Stopped the IV fluids Plan discussed with: Patient My Orders Orders - SRIRAM AGUIRRE MD Procedure Category Date Status Time * [employer] CONS 09/30/24 Transmitted Consult Date of Service: Sep 30, 2024 Billing Provider: SRIRAM AGUIRRE MD Common Visit Codes: [id number] INP/OBS CARE(HIGH) SRIRAM AGUIRRE MD Sep 30, 2024 11:23
[2024-10-01 05:00] VITALS: BP 120/81; PULSE 73; RESP 18; TEMP 98.8; O2SAT 96
[2024-10-01 09:10] VITALS: BP 122/75; PULSE 72; RESP 17; TEMP 97.9; O2SAT 98
--- NOTE | 2024-10-01 12:07 | DVHPN2 ---
Subjective No new complaints except some pain in the left leg Changes from previous H/P or p: Changes Eyes: No Pain, No Vision change, No Conjunctivae inflammation, No Eyelid inflammation, No Other, No Redness ENT: No Ear pain, No Ear discharge, No Nose pain, No Nose discharge, No Nose congestion, No Mouth pain, No Mouth swelling, No Throat pain, No Throat swelling, No Other Cardiovascular: No Chest Pain, No Palpitations, No Orthopnea, No Paroxysmal Noc. Dyspnea, No Edema, No Lt Headedness, No Other Respiratory: No Cough, No Dry, No Shortness of breath, No SOB with excertion, No Wheezing, No Hemoptysis, No Pleuritic Pain, No Sputum, No Other Gastrointestinal: No Nausea, No Vomiting, No Abdominal Pain, No Diarrhea, No Constipation, No Melena, No Hematochezia, No Other Genitourinary: No Dysuria, No Frequency, No Incontinence, No Hematuria, No Retention, No Other Musculoskeletal: other Skin: No Rash, No Lesions, No Jaundice, No Bruising, No Other Objective Vitals Vital Signs Date Time Temp Pulse Resp B/P (MAP) Pulse Ox O2 Delivery O2 Flow Rate FiO2 10/01/24 09:40 72 17 122/75 10/01/24 09:10 97.9 98 97.9 10/01/24 07:45 Room Air* 0 21 Intake/Output Intake and Output 10/01/24 07:00 Intake Total 1636 ml Output Total 2100 ml Balance -464 ml Intake Oral 1636 ml Output Urine Total 2100 ml General Appearance: Alert, Oriented X3, Cooperative Lungs: Clear to auscultation, Normal air movement Cardiovascular: Regular rate, Normal S1, Normal S2 Abdomen: Normal bowel sounds, Soft, No tenderness Extremities: Other Medications Current Medications Medications Dose Ordered Sig/León Route Start Time Stop Time Status Last Admin Dose Admin Acetaminophen/ Hydrocodone Bitart 1 tab Q4HP PRN PO 09/25/24 00:30 09/30/24 17:30 1 TAB Ondansetron HCl 4 mg Q4HP PRN IV 09/25/24 00:30 Docusate Sodium 100 mg BIDPRN PRN PO 09/25/24 00:30 10/01/24 09:40 100 MG Enoxaparin Sodium 40 mg DAILY SC 09/25/24 10:00 Acetaminophen 650 mg Q6HP PRN PO 09/25/24 00:30 Nitroglycerin 0.4 mg Q5MINP PRN SL 09/25/24 00:30 Hydromorphone HCl 0.5 mg Q4HPRN PRN IV 09/29/24 10:00 10/01/24 09:40 0.5 MG Laboratory Results Laboratory Tests 09/29/24 20:00 Urinalysis Test 09/28/24 00:16 Urine Color Light-yellow (Yellow) Urine Clarity Clear (Clear) Urine pH 6.5 (5.0-9.0) Urine Specific [place] 1.010 (1.001-1.035) Urine Protein Negative (Negative) Urine Ketones Negative (Negative) Urine Blood Negative /uL (Negative) Urine Nitrite Negative (Negative) Urine Bilirubin Negative (Negative) Urine Urobilinogen Normal mg/dL (Negative) Urine Leukocyte Esterase Negative /uL (Negative) Urine RBC 2 /hpf (0 - 3) Urine WBC <1 /hpf (0 - 3) Urine Squamous Epithelial Cells None seen /hpf (<5) Urine Bacteria None seen /hpf (None Seen) Urine Glucose Normal mg/dL (Normal) Assessment/Plan Assessment/Plan 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 Left lower extremity edema, rule out DVT Homeless Facial injury with no fracture Plan 09/25/2024: Doppler of the left leg to rule out DVT Orthopedic consult Pain management Monitor closely Advance directives discussed for 15 minutes Full code 09/26/2024: Orthopedic consult is pending Pain management as needed May shower No DVT 09/27/2024: Continue the current management pending orthopedic surgery evaluation Pain management as needed Shower 09/28/2024: Surgery for today The rest of the management will depend on the hospital course 09/29/2024: Change morphine to Dilaudid Physical therapy evaluation Lovenox prophylaxis Monitor closely 09/30/2024: Continue physical therapy The patient will need to go to SNF for rehab Lovenox Pain management Stopped the IV fluids 10/01/2024: Continue the current management with physical therapy The patient was found a SNF facility [place] however he says he is not willing to go there and he wants to stay here locally Today he said he might have a friend who might be able to take him for few weeks, he will check and let us know later today Discharge planning Plan discussed with: Patient Date of Service: Oct 01, 2024 Billing Provider: SRIRAM AGUIRRE MD Common Visit Codes: [id number] INP/OBS CARE(HIGH) SRIRAM AGUIRRE MD Oct 01, 2024 12:07
[2024-10-01 12:34] VITALS: BP 111/79; PULSE 74; RESP 19; TEMP 98.3; O2SAT 95
[2024-10-01 17:04] VITALS: BP 125/75; PULSE 80; RESP 15; TEMP 97.9; O2SAT 97
[2024-10-01 20:00] VITALS: PULSE 78; O2SAT 98
[2024-10-01 21:00] VITALS: BP 115/75; PULSE 78; RESP 18; TEMP 98.9; O2SAT 98
[2024-10-02] VITALS (8 sets, daily range): BP systolic 93–120; BP diastolic 50–72; PULSE 62–86; RESP 18–20; TEMP 97.8–98.8; O2SAT 92–99
--- NOTE | 2024-10-02 12:47 | DVHPN2 ---
Subjective No new complaints except some pain in the left leg We are still waiting for him to be placed either at a facility or if he is able to find accommodations Changes from previous H/P or p: Changes Eyes: No Pain, No Vision change, No Conjunctivae inflammation, No Eyelid inflammation, No Other, No Redness ENT: No Ear pain, No Ear discharge, No Nose pain, No Nose discharge, No Nose congestion, No Mouth pain, No Mouth swelling, No Throat pain, No Throat swelling, No Other Cardiovascular: No Chest Pain, No Palpitations, No Orthopnea, No Paroxysmal Noc. Dyspnea, No Edema, No Lt Headedness, No Other Respiratory: No Cough, No Dry, No Shortness of breath, No SOB with excertion, No Wheezing, No Hemoptysis, No Pleuritic Pain, No Sputum, No Other Gastrointestinal: No Nausea, No Vomiting, No Abdominal Pain, No Diarrhea, No Constipation, No Melena, No Hematochezia, No Other Genitourinary: No Dysuria, No Frequency, No Incontinence, No Hematuria, No Retention, No Other Musculoskeletal: other Skin: No Rash, No Lesions, No Jaundice, No Bruising, No Other Objective Vitals Vital Signs Date Time Temp Pulse Resp B/P (MAP) Pulse Ox O2 Delivery O2 Flow Rate FiO2 10/02/24 10:54 74 16 105/73 10/02/24 09:00 97.8 92 97.8 10/01/24 20:00 Room Air* 0 21 Intake/Output Intake and Output 10/02/24 07:00 Intake Total 1500 ml Output Total 1200 ml Balance 300 ml Intake Oral 1500 ml Output Urine Total 1200 ml # Voids 6 General Appearance: Alert, Oriented X3, Cooperative Lungs: Clear to auscultation, Normal air movement Cardiovascular: Regular rate, Normal S1, Normal S2 Abdomen: Normal bowel sounds, Soft, No tenderness Extremities: Other Medications Current Medications Medications Dose Ordered Sig/León Route Start Time Stop Time Status Last Admin Dose Admin Acetaminophen/ Hydrocodone Bitart 1 tab Q4HP PRN PO 09/25/24 00:30 09/30/24 17:30 1 TAB Ondansetron HCl 4 mg Q4HP PRN IV 09/25/24 00:30 Docusate Sodium 100 mg BIDPRN PRN PO 09/25/24 00:30 10/02/24 10:34 100 MG Enoxaparin Sodium 40 mg DAILY SC 09/25/24 10:00 Acetaminophen 650 mg Q6HP PRN PO 09/25/24 00:30 Nitroglycerin 0.4 mg Q5MINP PRN SL 09/25/24 00:30 Hydromorphone HCl 0.5 mg Q4HPRN PRN IV 09/29/24 10:00 10/02/24 10:26 0.5 MG Laboratory Results Laboratory Tests 09/29/24 20:00 Urinalysis Test 09/28/24 00:16 Urine Color Light-yellow (Yellow) Urine Clarity Clear (Clear) Urine pH 6.5 (5.0-9.0) Urine Specific [place] 1.010 (1.001-1.035) Urine Protein Negative (Negative) Urine Ketones Negative (Negative) Urine Blood Negative /uL (Negative) Urine Nitrite Negative (Negative) Urine Bilirubin Negative (Negative) Urine Urobilinogen Normal mg/dL (Negative) Urine Leukocyte Esterase Negative /uL (Negative) Urine RBC 2 /hpf (0 - 3) Urine WBC <1 /hpf (0 - 3) Urine Squamous Epithelial Cells None seen /hpf (<5) Urine Bacteria None seen /hpf (None Seen) Urine Glucose Normal mg/dL (Normal) Assessment/Plan Assessment/Plan 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 Left lower extremity edema, rule out DVT Homeless Facial injury with no fracture Plan 09/25/2024: Doppler of the left leg to rule out DVT Orthopedic consult Pain management Monitor closely Advance directives discussed for 15 minutes Full code 09/26/2024: Orthopedic consult is pending Pain management as needed May shower No DVT 09/27/2024: Continue the current management pending orthopedic surgery evaluation Pain management as needed Shower 09/28/2024: Surgery for today The rest of the management will depend on the hospital course 09/29/2024: Change morphine to Dilaudid Physical therapy evaluation Lovenox prophylaxis Monitor closely 09/30/2024: Continue physical therapy The patient will need to go to SNF for rehab Lovenox Pain management Stopped the IV fluids 10/01/2024: Continue the current management with physical therapy The patient was found a SNF facility [place] however he says he is not willing to go there and he wants to stay here locally Today he said he might have a friend who might be able to take him for few weeks, he will check and let us know later today Discharge planning 10/02/2024: Continue the current management pending placement He says today that his friend is not willing to take him He is exploring other options Plan discussed with: Patient Date of Service: Oct 02, 2024 Billing Provider: SRIRAM AGUIRRE MD Common Visit Codes: [id number] INP/OBS CARE(MOD) SRIRAM AGUIRRE MD Oct 02, 2024 12:47
[2024-10-03] VITALS (8 sets, daily range): BP systolic 92–119; BP diastolic 55–76; PULSE 66–83; RESP 17–20; TEMP 97.5–98.4; O2SAT 95–98
--- NOTE | 2024-10-03 11:11 | DVHPN2 ---
Subjective No change Changes from previous H/P or p: Changes Eyes: No Pain, No Vision change, No Conjunctivae inflammation, No Eyelid inflammation, No Other, No Redness ENT: No Ear pain, No Ear discharge, No Nose pain, No Nose discharge, No Nose congestion, No Mouth pain, No Mouth swelling, No Throat pain, No Throat swelling, No Other Cardiovascular: No Chest Pain, No Palpitations, No Orthopnea, No Paroxysmal Noc. Dyspnea, No Edema, No Lt Headedness, No Other Respiratory: No Cough, No Dry, No Shortness of breath, No SOB with excertion, No Wheezing, No Hemoptysis, No Pleuritic Pain, No Sputum, No Other Gastrointestinal: No Nausea, No Vomiting, No Abdominal Pain, No Diarrhea, No Constipation, No Melena, No Hematochezia, No Other Genitourinary: No Dysuria, No Frequency, No Incontinence, No Hematuria, No Retention, No Other Musculoskeletal: other Skin: No Rash, No Lesions, No Jaundice, No Bruising, No Other Objective Vitals Vital Signs Date Time Temp Pulse Resp B/P (MAP) Pulse Ox O2 Delivery O2 Flow Rate FiO2 10/03/24 09:02 71 22 104/60 10/03/24 07:59 98.2 96 98.2 10/02/24 20:00 Room Air* 0 21 Intake/Output Intake and Output 10/03/24 07:00 Intake Total 800 ml Output Total 700 ml Balance 100 ml Intake Oral 800 ml Output Urine Total 700 ml # Voids 4 General Appearance: Alert, Oriented X3, Cooperative Lungs: Clear to auscultation, Normal air movement Cardiovascular: Regular rate, Normal S1, Normal S2 Abdomen: Normal bowel sounds, Soft, No tenderness Extremities: Other Medications Current Medications Medications Dose Ordered Sig/León Route Start Time Stop Time Status Last Admin Dose Admin Acetaminophen/ Hydrocodone Bitart 1 tab Q4HP PRN PO 09/25/24 00:30 09/30/24 17:30 1 TAB Ondansetron HCl 4 mg Q4HP PRN IV 09/25/24 00:30 Docusate Sodium 100 mg BIDPRN PRN PO 09/25/24 00:30 10/02/24 10:34 100 MG Enoxaparin Sodium 40 mg DAILY SC 09/25/24 10:00 Acetaminophen 650 mg Q6HP PRN PO 09/25/24 00:30 Nitroglycerin 0.4 mg Q5MINP PRN SL 09/25/24 00:30 Hydromorphone HCl 0.5 mg Q4HPRN PRN IV 09/29/24 10:00 10/03/24 09:02 0.5 MG Laboratory Results Laboratory Tests 09/29/24 20:00 Urinalysis Test 09/28/24 00:16 Urine Color Light-yellow (Yellow) Urine Clarity Clear (Clear) Urine pH 6.5 (5.0-9.0) Urine Specific [place] 1.010 (1.001-1.035) Urine Protein Negative (Negative) Urine Ketones Negative (Negative) Urine Blood Negative /uL (Negative) Urine Nitrite Negative (Negative) Urine Bilirubin Negative (Negative) Urine Urobilinogen Normal mg/dL (Negative) Urine Leukocyte Esterase Negative /uL (Negative) Urine RBC 2 /hpf (0 - 3) Urine WBC <1 /hpf (0 - 3) Urine Squamous Epithelial Cells None seen /hpf (<5) Urine Bacteria None seen /hpf (None Seen) Urine Glucose Normal mg/dL (Normal) Assessment/Plan Assessment/Plan 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 Left lower extremity edema, rule out DVT Homeless Facial injury with no fracture Plan 09/25/2024: Doppler of the left leg to rule out DVT Orthopedic consult Pain management Monitor closely Advance directives discussed for 15 minutes Full code 09/26/2024: Orthopedic consult is pending Pain management as needed May shower No DVT 09/27/2024: Continue the current management pending orthopedic surgery evaluation Pain management as needed Shower 09/28/2024: Surgery for today The rest of the management will depend on the hospital course 09/29/2024: Change morphine to Dilaudid Physical therapy evaluation Lovenox prophylaxis Monitor closely 09/30/2024: Continue physical therapy The patient will need to go to SNF for rehab Lovenox Pain management Stopped the IV fluids 10/01/2024: Continue the current management with physical therapy The patient was found a SNF facility [place] however he says he is not willing to go there and he wants to stay here locally Today he said he might have a friend who might be able to take him for few weeks, he will check and let us know later today Discharge planning 10/02/2024: Continue the current management pending placement He says today that his friend is not willing to take him He is exploring other options 10/03/24: Continue current management Placement Plan discussed with: Patient Date of Service: Oct 03, 2024 Billing Provider: SRIRAM AGUIRRE MD Common Visit Codes: [id number] INP/OBS CARE(MOD) SRIRAM AGUIRRE MD Oct 03, 2024 11:11
[2024-10-04] VITALS (7 sets, daily range): BP systolic 103–123; BP diastolic 71–76; PULSE 60–74; RESP 16–19; TEMP 97.8–98.5; O2SAT 93–98
--- NOTE | 2024-10-04 16:46 | DVHPN2 ---
Subjective No change Changes from previous H/P or p: Changes Eyes: No Pain, No Vision change, No Conjunctivae inflammation, No Eyelid inflammation, No Other, No Redness ENT: No Ear pain, No Ear discharge, No Nose pain, No Nose discharge, No Nose congestion, No Mouth pain, No Mouth swelling, No Throat pain, No Throat swelling, No Other Cardiovascular: No Chest Pain, No Palpitations, No Orthopnea, No Paroxysmal Noc. Dyspnea, No Edema, No Lt Headedness, No Other Respiratory: No Cough, No Dry, No Shortness of breath, No SOB with excertion, No Wheezing, No Hemoptysis, No Pleuritic Pain, No Sputum, No Other Gastrointestinal: No Nausea, No Vomiting, No Abdominal Pain, No Diarrhea, No Constipation, No Melena, No Hematochezia, No Other Genitourinary: No Dysuria, No Frequency, No Incontinence, No Hematuria, No Retention, No Other Musculoskeletal: other Skin: No Rash, No Lesions, No Jaundice, No Bruising, No Other Objective Vitals Vital Signs Date Time Temp Pulse Resp B/P (MAP) Pulse Ox O2 Delivery O2 Flow Rate FiO2 10/04/24 13:00 97.9 71 16 119/72 (88) 94 97.9 10/04/24 08:00 Room Air* 0 21 Intake/Output Intake and Output 10/04/24 07:00 Intake Total 2990 ml Output Total 3325 ml Balance -335 ml Intake Oral 2990 ml Output Urine Total 3325 ml General Appearance: Alert, Oriented X3, Cooperative Lungs: Clear to auscultation, Normal air movement Cardiovascular: Regular rate, Normal S1, Normal S2 Abdomen: Normal bowel sounds, Soft, No tenderness Extremities: Other Medications Current Medications Medications Dose Ordered Sig/León Route Start Time Stop Time Status Last Admin Dose Admin Acetaminophen/ Hydrocodone Bitart 1 tab Q4HP PRN PO 09/25/24 00:30 09/30/24 17:30 1 TAB Ondansetron HCl 4 mg Q4HP PRN IV 09/25/24 00:30 Docusate Sodium 100 mg BIDPRN PRN PO 09/25/24 00:30 10/02/24 10:34 100 MG Enoxaparin Sodium 40 mg DAILY SC 09/25/24 10:00 Acetaminophen 650 mg Q6HP PRN PO 09/25/24 00:30 Nitroglycerin 0.4 mg Q5MINP PRN SL 09/25/24 00:30 Hydromorphone HCl 0.5 mg Q4HPRN PRN IV 09/29/24 10:00 10/04/24 11:04 0.5 MG Laboratory Results Laboratory Tests 09/29/24 20:00 Urinalysis Test 09/28/24 00:16 Urine Color Light-yellow (Yellow) Urine Clarity Clear (Clear) Urine pH 6.5 (5.0-9.0) Urine Specific [place] 1.010 (1.001-1.035) Urine Protein Negative (Negative) Urine Ketones Negative (Negative) Urine Blood Negative /uL (Negative) Urine Nitrite Negative (Negative) Urine Bilirubin Negative (Negative) Urine Urobilinogen Normal mg/dL (Negative) Urine Leukocyte Esterase Negative /uL (Negative) Urine RBC 2 /hpf (0 - 3) Urine WBC <1 /hpf (0 - 3) Urine Squamous Epithelial Cells None seen /hpf (<5) Urine Bacteria None seen /hpf (None Seen) Urine Glucose Normal mg/dL (Normal) Assessment/Plan Assessment/Plan 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 Left lower extremity edema, rule out DVT Homeless Facial injury with no fracture Plan 09/25/2024: Doppler of the left leg to rule out DVT Orthopedic consult Pain management Monitor closely Advance directives discussed for 15 minutes Full code 09/26/2024: Orthopedic consult is pending Pain management as needed May shower No DVT 09/27/2024: Continue the current management pending orthopedic surgery evaluation Pain management as needed Shower 09/28/2024: Surgery for today The rest of the management will depend on the hospital course 09/29/2024: Change morphine to Dilaudid Physical therapy evaluation Lovenox prophylaxis Monitor closely 09/30/2024: Continue physical therapy The patient will need to go to SNF for rehab Lovenox Pain management Stopped the IV fluids 10/01/2024: Continue the current management with physical therapy The patient was found a SNF facility [place] however he says he is not willing to go there and he wants to stay here locally Today he said he might have a friend who might be able to take him for few weeks, he will check and let us know later today Discharge planning 10/02/2024: Continue the current management pending placement He says today that his friend is not willing to take him He is exploring other options 10/03/24: Continue current management Placement 10/04/24: Patient says he doesn't have a place to go to He is willing to go to [place] but not [place] He is refusing Lovenox because "he is afraid of needles" Plan discussed with: Patient My Orders Orders - SRIRAM AGUIRRE MD Procedure Category Date Status Time * 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
[2024-10-05 01:00] VITALS: BP 118/72; PULSE 65; RESP 18; TEMP 98.1; O2SAT 99
[2024-10-05 05:00] VITALS: BP 125/75; PULSE 65; RESP 18; TEMP 97.8; O2SAT 98
[2024-10-05 08:00] VITALS: RESP 18
[2024-10-05 09:00] VITALS: BP 113/68; PULSE 62; RESP 16; TEMP 98; O2SAT 97
--- NOTE | 2024-10-05 09:27 | DVHPN2 ---
Subjective No change Changes from previous H/P or p: Changes Eyes: No Pain, No Vision change, No Conjunctivae inflammation, No Eyelid inflammation, No Other, No Redness ENT: No Ear pain, No Ear discharge, No Nose pain, No Nose discharge, No Nose congestion, No Mouth pain, No Mouth swelling, No Throat pain, No Throat swelling, No Other Cardiovascular: No Chest Pain, No Palpitations, No Orthopnea, No Paroxysmal Noc. Dyspnea, No Edema, No Lt Headedness, No Other Respiratory: No Cough, No Dry, No Shortness of breath, No SOB with excertion, No Wheezing, No Hemoptysis, No Pleuritic Pain, No Sputum, No Other Gastrointestinal: No Nausea, No Vomiting, No Abdominal Pain, No Diarrhea, No Constipation, No Melena, No Hematochezia, No Other Genitourinary: No Dysuria, No Frequency, No Incontinence, No Hematuria, No Retention, No Other Musculoskeletal: other Skin: No Rash, No Lesions, No Jaundice, No Bruising, No Other Objective Vitals Vital Signs Date Time Temp Pulse Resp B/P (MAP) Pulse Ox O2 Delivery O2 Flow Rate FiO2 10/05/24 08:00 18 Room Air* 0 21 10/05/24 05:00 97.8 65 125/75 (92) 98 97.8 Intake/Output Intake and Output 10/05/24 07:00 Intake Total 3450 ml Output Total 1800 ml Balance 1650 ml Intake Oral 3450 ml Output Urine Total 1800 ml # Voids 2 # Bowel Movements 2 General Appearance: Alert, Oriented X3, Cooperative Lungs: Clear to auscultation, Normal air movement Cardiovascular: Regular rate, Normal S1, Normal S2 Abdomen: Normal bowel sounds, Soft, No tenderness Extremities: Other Medications Current Medications Medications Dose Ordered Sig/León Route Start Time Stop Time Status Last Admin Dose Admin Acetaminophen/ Hydrocodone Bitart 1 tab Q4HP PRN PO 09/25/24 00:30 10/05/24 09:15 1 TAB Ondansetron HCl 4 mg Q4HP PRN IV 09/25/24 00:30 Docusate Sodium 100 mg BIDPRN PRN PO 09/25/24 00:30 10/02/24 10:34 100 MG Enoxaparin Sodium 40 mg DAILY SC 09/25/24 10:00 Acetaminophen 650 mg Q6HP PRN PO 09/25/24 00:30 Nitroglycerin 0.4 mg Q5MINP PRN SL 09/25/24 00:30 Laboratory Results Laboratory Tests 09/29/24 20:00 Urinalysis Test 09/28/24 00:16 Urine Color Light-yellow (Yellow) Urine Clarity Clear (Clear) Urine pH 6.5 (5.0-9.0) Urine Specific [place] 1.010 (1.001-1.035) Urine Protein Negative (Negative) Urine Ketones Negative (Negative) Urine Blood Negative /uL (Negative) Urine Nitrite Negative (Negative) Urine Bilirubin Negative (Negative) Urine Urobilinogen Normal mg/dL (Negative) Urine Leukocyte Esterase Negative /uL (Negative) Urine RBC 2 /hpf (0 - 3) Urine WBC <1 /hpf (0 - 3) Urine Squamous Epithelial Cells None seen /hpf (<5) Urine Bacteria None seen /hpf (None Seen) Urine Glucose Normal mg/dL (Normal) Assessment/Plan Assessment/Plan 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 Left lower extremity edema, rule out DVT Homeless Facial injury with no fracture Plan 09/25/2024: Doppler of the left leg to rule out DVT Orthopedic consult Pain management Monitor closely Advance directives discussed for 15 minutes Full code 09/26/2024: Orthopedic consult is pending Pain management as needed May shower No DVT 09/27/2024: Continue the current management pending orthopedic surgery evaluation Pain management as needed Shower 09/28/2024: Surgery for today The rest of the management will depend on the hospital course 09/29/2024: Change morphine to Dilaudid Physical therapy evaluation Lovenox prophylaxis Monitor closely 09/30/2024: Continue physical therapy The patient will need to go to SNF for rehab Lovenox Pain management Stopped the IV fluids 10/01/2024: Continue the current management with physical therapy The patient was found a SNF facility [place] however he says he is not willing to go there and he wants to stay here locally Today he said he might have a friend who might be able to take him for few weeks, he will check and let us know later today Discharge planning 10/02/2024: Continue the current management pending placement He says today that his friend is not willing to take him He is exploring other options 10/03/24: Continue current management Placement 10/04/24: Patient says he doesn't have a place to go to He is willing to go to [place] but not down the [place] He is refusing Lovenox because "he is afraid of needles 10/05/24: The patient is willing to go to [place] SNF if available for him but not [place] Continue to try to send him to rehab Continue the current management Plan discussed with: Patient My Orders Orders - SRIRAM AGUIRRE MD Procedure Category Date Status Time * 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
[2024-10-05 13:00] VITALS: BP 108/69; PULSE 68; RESP 17; TEMP 98.1; O2SAT 94
--- NOTE | 2024-10-05 20:28 | DVHDS2 ---
Discharge Summary Date of Admission Sep 25, 2024 at 00:16 Date of Discharge: Oct 05, 2024 Labs/Diagnostic Data: Laboratory Results Test 09/29/24 20:00 09/28/24 06:20 09/28/24 00:16 White Blood Count 13.8 10^3/uL (4.4-10.8) Red Blood Count 4.72 10^6/uL (4.5-5.90) Hemoglobin 13.9 g/dL (13.5-17.5) Hematocrit 41.5 % (41.0-53.0) Mean Corpuscular Volume 87.8 fL (80.0-100.0) Mean Corpuscular Hemoglobin 29.4 pg (28.0-32.0) Mean Corpuscular Hemoglobin Concent 33.5 g/dL (32.0-36.0) Red Cell Distribution Width 13.1 % (11.8-14.3) Platelet Count 391 10^3/uL (140-450) Mean Platelet Volume 8.7 fL (6.9-10.8) Neutrophils (%) (Auto) 72.7 % (37.0-80.0) Lymphocytes (%) (Auto) 15.5 % (10.0-50.0) Monocytes (%) (Auto) 10.2 % (0.0-12.0) Eosinophils (%) (Auto) 0.8 % (0.0-7.0) Basophils (%) (Auto) 0.8 % (0.0-2.0) Neutrophils # (Auto) 10.0 10 ^3/uL (1.6-8.6) Lymphocytes # (Auto) 2.1 10 ^3/uL (0.4-5.4) Monocytes # (Auto) 1.4 10 ^3/uL (0-1.3) Eosinophils # (Auto) 0.1 10 ^3/uL (0-0.8) Basophils # (Auto) 0.1 10 ^3/uL (0-0.2) Nucleated Red Blood Cells 0.0 % Sodium Level 134 mmol/L (136-145) Potassium Level 4.2 mmol/L (3.5-5.1) Chloride Level 98 mmol/L (98-107) Carbon Dioxide Level 31 mmol/L (20-31) Anion Gap 5 (5-15) Blood Urea Nitrogen 18 mg/dL (9-23) Creatinine 0.77 mg/dL (0.700-1.30) Glomerular Filtration Rate Calc 107 mL/min (>90) BUN/Creatinine Ratio 23.4 (10.0-20.0) Serum Glucose 125 mg/dL (74-106) Calcium Level 10.1 mg/dL (8.7-10.4) Magnesium Level 1.9 mg/dL (1.6-2.6) Prothrombin Time 11.1 sec (9.3-11.8) Prothrombin Time INR 1.05 (0.9-1.15) Activated Partial Thromboplast Time 27.6 SEC (24.5-34.5) Total Bilirubin 0.7 mg/dL (0.2-1.0) Aspartate Amino Transferase (AST) 20 U/L (13-40) Alanine Aminotransferase (ALT) 16 U/L (7-40) Alkaline Phosphatase 86 U/L (46-116) Total Protein 7.0 g/dL (5.7-8.2) Albumin 4.1 g/dL (3.2-4.8) Urine Color Light-yellow (Yellow) Urine Clarity Clear (Clear) Urine pH 6.5 (5.0-9.0) Urine Specific [place] 1.010 (1.001-1.035) Urine Protein Negative (Negative) Urine Ketones Negative (Negative) Urine Blood Negative /uL (Negative) Urine Nitrite Negative (Negative) Urine Bilirubin Negative (Negative) Urine Urobilinogen Normal mg/dL (Negative) Urine Leukocyte Esterase Negative /uL (Negative) Urine RBC 2 /hpf (0 - 3) Urine WBC <1 /hpf (0 - 3) Urine Squamous Epithelial Cells None seen /hpf (<5) Urine Bacteria None seen /hpf (None Seen) Urine Glucose Normal mg/dL (Normal) Other Laboratory Tests 09/29/24 20:00 Brief Hx & Hospital Course: 54 year old [place] after a fall resulting in left knee injury and patellar tendon tear requiring surgery He did well post-operatively However he is homeless, we tried to help him with placement, [place]. Today he left AMA. 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 Patient was counseled about treatment plan, medications, possible side effects, patientverbalized understanding. All questions were answered to the best of my ability. This discharge took greater then 30 minutes in planning, reviewing documentation, counseling the patient, and discussing with other team members." ASSESSMENT ASSESSMENT Assessment Left knee patellar tendon rupture Date of Service: Oct 05, 2024 Billing Provider: SRIRAM AGUIRRE MD Common Visit Codes: 69841-BUD/OBS DISCH DAY >30min SRIRAM AGUIRRE MD Oct 05, 2024 20:28
== END 2024-10-05 14:39 | disposition left against medical advice (07) | DRG 317 ==
LOC: ER 18:44 → OVERFLOW 09-25 00:16 → EAST 09-25 17:32
PROVIDERS: ADMIT Orthopaedic Surgery Sports Medicine; ATTEND Internal Medicine Geriatric Medicine
PROC: 0LQR0ZZ Repair Left Knee Tendon, Open Approach (ICD-10-PCS; principal; 2024-09-28 14:49)
DX: S76.112A Strain of left quadriceps muscle, fascia and tendon, initial encounter (principal); R60.0 Localized edema; S82.002A Unspecified fracture of left patella, initial encounter for closed fracture; S09.93XA Unspecified injury of face, initial encounter; Z53.29 Procedure and treatment not carried out because of patient's decision for other reasons; W18.39XA Other fall on same level, initial encounter; Z59.00 Homelessness unspecified; Y93.89 Activity, other specified; Y92.89 Other specified places as the place of occurrence of the external cause; Y99.8 Other external cause status
CPT/HCPCS: 36415; 70486; 71045; 73560; 73700; 73721; 76000; 80048; 80053; 81001; 83735; 85025; 85610; 85730; 86850; 86900; 86901; 93971; 97110; 97116; 97163; 97530; G0378; J0131; J1100; J1885; J2250; J2704; J3490

== ENCOUNTER 2024-11-30 13:27 | Emergency (ER) | payer MEDICAID ==
[~2024-11-30] VITALS: Ht 157.5 cm; Wt 57.5 kg
[2024-11-30 13:50] VITALS: BP 120/78; PULSE 91; RESP 16; O2SAT 95
--- NOTE | 2024-11-30 15:54 | ED.PDOC ---
History of Present Illness HPI Comments 54 year old male presents to the ED with chief complaint of left heel wound and lynette removal. Patient reports that he has had a left heel wound that he noticed yesterday, picking at it and noticing it looked infected to him. Patient relays that he also had lynette placed into his left knee due to having a left knee replacement in October 05, but never had them removed. Patient left AMA on the 05 of October. Patient denies any numbness, weakness, bleeding, or discharge. Chief Complaint: Wound Check Time Seen by MD: 15:48 Primary Care Provider: none Reviewed Notes: Nurses Notes, Medications, Allergies Allergies: Coded Allergies: NO KNOWN ALLERGIES (Unverified , 09/24/24) Information Source: Patient Mode of Arrival: Ambulatory Severity: Mild Timing: Months Duration: Since onset Prehospital treatment: None Past Medical History PAST MEDICAL HISTORY: Denies Surgical History: Denies all surgeries Family History Family History: Reviewed,noncontributory to illness Social History Smoker: Non-Smoker Alcohol: Denies ETOH Use Drugs: Denies Drug Use Lives In: Home Constitutional: denies: chills, diaphoresis, fatigue, fever, malaise, sweats, weakness, others EENTM: denies: blurred vision, double vision, ear bleeding, ear discharge, ear drainage, ear pain, ear ringing, eye pain, eye redness, hearing loss, mouth pain, mouth swelling, nasal discharge, nose bleeding, nose congestion, nose pain, photophobia, tearing, throat pain, throat swelling, voice changes, others Respiratory: denies: cough, hemoptysis, orthopnea, SOB at rest, shortness of breath, SOB with excertion, stridor, wheezing, others Cardiovascular: denies: chest pain, dizzy spells, diaphoresis, Dyspnea on exertion, edema, irregular heart beat, left arm pain, lightheadedness, palpitations, PND, syncope, others Gastrointestinal: denies: abdomen distended, abdominal pain, blood streaked bowels, constipated, diarrhea, dysphagia, difficulty swallowing, hematemesis, melena, nausea, poor appetite, poor fluid intake, rectal bleeding, rectal pain, vomiting, others Genitourinary: denies: burning, dysuria, flank pain, frequency, hematuria, incontinence, penile discharge, penile sore, pain, testicle pain, testicle swelling, urgency, others Neurological: denies: dizziness, fainting, headache, left sided numbness, left sided weakness, numbness, paresthesia, pre-existing deficit, right sided numbness, right sided weakness, seizure, speech problems, tingling, tremors, weakness, others Musculoskeletal: denies: back pain, gout, joint pain, joint swelling, muscle pain, muscle stiffness, neck pain, others Integumetry: reports: wounds (Left heel); denies: bruises, change in color, change in hair/nails, dryness, laceration, lesions, lumps, rash, others Allergic/Immunocompromised: denies: Difficulty Healing, Frequent Infections, Hives, Itching, others Hematologic/Lymphatic: denies: anemia, blood clots, easy bleeding, easy bruising, swollen glands, others Endocrine: denies: excessive hunger, excessive sweating, excessive thirst, excessive urination, flushing, intolerance to cold, intolerance to heat, unexplained weight gain, unexplained weight loss, others Psychiatric: denies: anxiety, bipolar disorder, depression, hopeless, panic disorder, schizophrenia, sleepless, suicidal, others All Other Systems: Reviewed and Negative Physical Exam General Appearance: No Apparent Distress, Normal HEENT: Normal ENT Inspection, Pharynx Normal, TMs Normal Neck: Full Range of Motion, Non-Tender, Normal, Normal Inspection Respiratory: Chest Non-Tender, Lungs Clear, No Accessory Muscle Use, No Respiratory Distress, Normal Breath Sounds Cardiovascular: No Edema, No JVD, No Murmur, No Gallop, Normal Peripheral Pulses, Regular Rate/Rhythm Breast Exam: Deferred Gastrointestinal: No Organomegaly, Non Tender, No Pulsatile Mass, Normal Bowel Sounds, Soft Genitalia: Deferred Pelvic: Deferred Rectal: Deferred Extremities: No calf tenderness, Normal capillary refill, Normal inspection, Normal range of motion, Non-tender, No pedal edema, Other (8 Lynette to left knee, 1cm dry, scarring scab with no discharge noted to left heel.) Musculoskeletal : Apperance: Normal Neurologic: Alert, housekeeper supervisor II-XII nml as Tested, No Motor Deficits, Normal Affect, Normal Mood, No Sensory Deficits Cerebellar Function: Normal Reflexes: Normal Skin: Dry, Normal Color, Warm, Wounds (Dry wound noted on the posterior heel of the left foot. Measures approximate 1 cm round. Thickened edges. No discharge.) Lymphatic: No Adenopathy Was a procedure done? Was a procedure done?: Yes Sedation Sedation?: No Other Procedure Procedure Lynette removal Indication [place] noted to left knee since 10/05. Anesthetic None Success Successfully removed 8 lynette from the left knee without complication. Informed consent obtained: Yes Risks, benefits, and alternati: Yes Differential Dx Considerations may include: Cellulitis, nonhealing wound, staple removal X-Ray, Labs, Meds, VS Vital Signs Date Time Temp Pulse Resp B/P (MAP) Pulse Ox O2 Delivery O2 Flow Rate FiO2 11/30/24 13:50 99.6 91 16 120/78 (92) 95 Time of 1ST Reevaluation: 16:00 Reevaluation 1ST: Improved Patient Education/Counseling: Diagnosis, Treatment Family Education/Counseling: No Family Present Departure 1 Departure Time of Disposition: 16:01 Impression: Primary Impression: Cellulitis Qualified Codes: L03.116 - Cellulitis of left lower limb Additional Impression: Removal of staple Disposition: 01 HOME / SELF CARE / HOMELESS Condition: Fair e-Prescriptions Sulfamethoxazole W/Trimethopri (Bactrim Ds Tablet) 1 Tab Tb 1 TAB PO BID for 10 Days, #20 TAB Prov: EDVIN GEORGE 11/30/24 Discharged With: Self Critical Care Note Critical Care Time?: No Stability Stability form required: No Heart Score Heart Score: Heart Score Response (Comments) Value History N/A 0 EKG N/A 0 Age N/A 0 Risk Factors N/A 0 Troponin N/A 0 Total 0 I personally scribed for EDVIN GEORGE ([email or web address]) on 11/30/24 at 15:54. Electronically submitted by Ozzy Edward ([email or web address]). EDVIN GEORGE Nov 30, 2024 15:54
[2024-11-30] MEDS ORDERED: BACDST PO (16:02)
== END 2024-11-30 19:05 | disposition home or self-care (01) ==
LOC: ER 13:40
DX: L03.116 Cellulitis of left lower limb (principal); Z48.02 Encounter for removal of sutures